=== PATIENT | female | born 1995 | race Two or more races ===

== ENCOUNTER 2017-12-02 15:45 | Emergency (ER) | payer MEDICAID ==
[~2017-12-02] VITALS: Ht 160 cm; Wt 68.0 kg
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
[2017-12-02] MEDS ORDERED: IBUPROFEN600 MG ORAL (16:52)
[2017-12-02] MEDS ORDERED: METHOCARBAMOL500 MG ORAL (16:52)
[2017-12-02 17:11] VITALS: BP 137/89
== END 2017-12-02 17:43 | disposition home or self-care (01) ==
LOC: EMR 16:30
DX: M54.5 Low back pain (principal); V43.52XA Car driver injured in collision with other type car in traffic accident, initial encounter; Y93.9 Activity, unspecified; Y92.410 Unspecified street and highway as the place of occurrence of the external cause
CPT/HCPCS: 99284